=== PATIENT | male | born 1990 | race Caucasian/White ===

== ENCOUNTER 2016-07-19 05:54 | Emergency (ER) | payer BC ==
[~2016-07-19] VITALS: Ht 185.4 cm; Wt 98.2 kg
[2016-07-19 06:15] VITALS: BP 129/73
[2016-07-19 07:23] LABS: ASPARTATE AMINO TRANSFERASE 35 U/L (15-37); BLOOD UREA NITROGEN 15 mg/dL (7-18)
[2016-07-19 11:17] LABS: HEP B SURF. AB < 3.1 mIU/mL (0.0-10.0)
[2016-07-19 11:49] LABS: HEPATITIS C VIRUS ANTIBODY Nonreactive (Nonreactive)
== END 2016-07-19 08:14 | disposition home or self-care (01) ==
LOC: ED 07:44
DX: R19.7 Diarrhea, unspecified (principal); R50.9 Fever, unspecified
CPT/HCPCS: 36415; 80053; 85025; 86705; 86706; 86709; 86803; 87340; 99284